=== PATIENT | male | born 1985 | race Caucasian/White ===

== ENCOUNTER 2019-03-17 22:18 | Emergency (ER) | payer MEDICAID ==
[~2019-03-17] VITALS: Ht 175.3 cm; Wt 97.5 kg
[2019-03-17 22:21] VITALS: Ht 175.3 cm; Wt 97.5 kg
[2019-03-18 11:03] VITALS: BP 132/71
== END 2019-03-18 11:08 | disposition home or self-care (01) ==
LOC: ED 22:18
DX: G44.209 Tension-type headache, unspecified, not intractable (principal); F17.210 Nicotine dependence, cigarettes, uncomplicated; Z59.0 Homelessness
CPT/HCPCS: 99406

== ENCOUNTER 2019-04-21 08:40 | Emergency (ER) | payer MEDICAID ==
[~2019-04-21] VITALS: Ht 175.3 cm; Wt 97.5 kg
[2019-04-21 08:46] VITALS: Ht 175.3 cm; Wt 97.5 kg
[2019-04-21 09:53] VITALS: BP 135/83
== END 2019-04-21 09:56 | disposition home or self-care (01) ==
LOC: ED 08:40
DX: R51 Headache (principal); H52.10 Myopia, unspecified eye; F17.210 Nicotine dependence, cigarettes, uncomplicated; F41.9 Anxiety disorder, unspecified; Z59.0 Homelessness
CPT/HCPCS: 99406